=== PATIENT | male | born 1960 | race Caucasian/White ===

== ENCOUNTER 2022-07-29 08:48 | Emergency (ER) | payer OTHER, SELFPAY ==
--- NOTE | ~2022-07-29 | XR_ITS ---
EXAMINATION: XR CHEST CLINICAL INFORMATION: Chest pain. COMPARISON: 03/13/2014 chest radiographs. TECHNIQUE: 2 views of the chest were obtained. FINDINGS: No significant abnormality is noted involving the heart, lungs, mediastinum, bony thorax or soft tissues. XR/XR chest 2V IMPRESSION: No acute cardiopulmonary process.
--- NOTE | 2022-07-29 08:49 | ECG_ITS ---
Test Reason : chest pain Blood Pressure : / mmHG Vent. Rate : 051 BPM Atrial Rate : 051 BPM P-R Int : 170 ms QRS Dur : 086 ms QT Int : 456 ms P-R-T Axes : 075 -67 083 degrees QTc Int : 420 ms Sinus bradycardia Possible Left atrial enlargement St sagging in high lateral leads Left anterior fascicular block Minimal voltage criteria for LVH, may be normal variant ( Tiff product ) Inferior infarct , age undetermined Anterolateral infarct , age undetermined Abnormal ECG No previous ECGs available Referred By: Generic ED Physician Electronically Signed By:TERI GUILLERMO MD
[2022-07-29 08:53] VITALS: BP 144/81; PULSE 53; RESP 18; TEMP 36.6; O2SAT 96; BMI 29.2
[2022-07-29 09:20] LABS: MANUAL DIFF FLAG NO
[2022-07-29 09:22] LABS: Basophils Percent Auto 0.6 % (0-2); Eosinophils Absolute Auto 0.2 X10*3/uL (0.0-0.4); Eosinophils Percent Auto 3.2 % (0-4); Hematocrit 42.5 % (42.0-52.0); Hemoglobin 14.8 g/dl (14.0-18.0); Imm Gran Abs Auto 0.02 X10*3/uL (0.00-0.03); Imm Gran Pct Auto 0.3 % (0.0-0.4); Lymphocytes Absolute Auto 1.8 X10*3/uL (1.2-4.9); Lymphocytes Percent Auto 27.1 % (20-40); Mean Corpuscular HGB Conc 34.8 g/dl (31.0-36.0); Mean Corpuscular Hemoglobin 30.4 pg (27.0-33.0); Mean Corpuscular Volume 87.3 fL (80.0-98.0); Mean Platelet Volume 10.3 fL (9.4-12.4); Monocytes Absolute Auto 0.5 X10*3/uL (0.1-1.2); Monocytes Percent Auto 7.4 % (2-11); Neutrophils Absolute Auto 4.1 x10*3/uL (2.0-8.3); Neutrophils Percent Auto 61.4 % (45-73); Platelet Count 228 X10*3/uL (160-400); Red Blood Count 4.87 X10*6/uL (4.60-5.80); Red Cell Distribution Width 13.4 % (11.0-16.0); White Blood Count 6.6 X10*3/uL (4.8-10.8)
[2022-07-29 09:33] LABS: Anion Gap 12 (12-20); Blood Urea Nitrogen 10 mg/dL (9-16); Calcium 9.7 mg/dL (8.4-10.2); Carbon Dioxide 27 mmol/L (22-29); Chloride 107 mmol/L (96-108); Creatinine Clr Calc Pharmacy 75.1; Estimated Glomerular Filt Rate > 60; Glucose Random 106 mg/dL (60-115); Potassium 5.1 mmol/L (3.3-5.1); Sodium 141 mmol/L (135-145)
[2022-07-29 10:00] VITALS: BP 146/81; PULSE 49; RESP 11; TEMP 36.9; O2SAT 98
--- NOTE | 2022-07-29 10:05 | ED_ITS ---
HPI - Chest Pain General Chief Complaint: Chest Pain Stated Complaint: Chest pain Time Seen by Provider: 07/29/22 09:55 Source: patient Mode of arrival: ambulatory Limitations: no limitations History of Present Illness HPI narrative: Patient is a 62-year-old male who presents to the emergency department for evaluation of chest pain. He has no reported past medical history and does not take any medications. He reports approximately 2-3 weeks ago he tested positive for COVID-19. Soon thereafter he began developing chest pain that is described as substernal in nature and a burning sensation, at times is felt to the left anterior chest. Typically this pain lasts approximately 1-2 minutes and then resolves spontaneously. However, yesterday while he was snow blowing he developed severe pain with diaphoresis and nausea. He sat down for 15 minutes and then the pain resolved. He was able to go back and then complete snow blowing without any issue. Today while he was at work, which was approximately 2-3 hours prior to arrival he was clearing snow from a roof when he again developed severe pain to the chest which lasted approximately 15-20 minutes. This again self resolved. At this time he is currently without any chest pain. Denies headache, dizziness, vision changes, neck pain, jaw pain, shortness of breath, difficulty breathing, nausea, vomiting, abdominal pain, numbness or tingling of the extremities, generalized weakness. Denies any fevers or chills. Related Data Home Medications Medication Instructions Recorded Confirmed multivitamin 1 tab PO DAILY 07/29/22 07/29/22 zinc 50 mg tablet 50 mg PO DAILY 07/29/22 07/29/22 Allergies Allergy/AdvReac Type Severity Reaction Status Date / Time No Known Allergies Allergy Verified 07/29/22 08:53 Review of Systems Review of Systems: Yes all other systems are reviewed and are negative [facility] Past Medical History Attestation statement: The following information was validated with the patient. Source: old records reviewed Social History Social History Advance Directives: No Advance Directives Information Provided: No Physical Exam Vital Signs: Vital Signs: Last Vital Signs Temp 98.4 F 07/29/22 15:04 Pulse 56 07/29/22 15:04 Resp 14 07/29/22 15:04 BP 138/83 07/29/22 15:04 Pulse Ox 97 07/29/22 15:04 O2 Del Method 07/29/22 15:04 BMI result Body Mass Index 29.2 Appearance: Alert.?Oriented to person, place and time. No acute distress.?Normal affect. Eyes: Pupils equal, round and reactive to light.? ENT: Pharynx normal.?? Neck: Normal inspection.? Neck supple.?? CVS: Heart sounds normal. Normal heart rate and rhythm.? Pulses normal.?? Respiratory: No respiratory distress.? Lung sounds clear to auscultation bilaterally?? Abdomen: Soft and non-tender. Normoactive bowel sounds. ? Skin: Skin warm and dry.? Normal skin color.? Extremities: No lower extremity edema.? No calf ttp? Neuro: Moves all extremities spontaneously. Sensation intact bilaterally. CN II- XII intact. No focal neuro deficits. Ambulates with normal steady gait. Course Reevaluation(s) Reevaluation #1: Evaluated patient is labs, CBC is unremarkable, BMP overall unremarkable, potassium at high normal 5.1. Critical troponin of 116.1. EKG revealing sinus bradycardia with J-point elevation in the precordial leads, and LVH without any reciprocal changes, QTC of 420, no prior EKGs available for review. At this time will obtain repeat EKG, plan for repeat troponin at 12:00, in addition will obtain D-dimer. He remains asymptomatic at this time. Consulting with Cardiology on-call Dr. Osborne for any additional recommendations. Aspirin 324 mg p.o. orally ordered. Time: 10:40 Reevaluation #2: Repeat EKG was unchanged from initial. Spoke with Cardiology, concern for high- risk ACS at this time, patient to be initiated on heparin drip, bolus ordered, in addition to atorvastatin. Patient updated on plan of care and is agreeable. At this time continues to remain asymptomatic. Time: 11:12 Reevaluation #3: Repeat troponin 105.2. Chest x-ray without acute cardiopulmonary process. Pending cardiology evaluation Time: 12:14 Additional Reevaluation(s): 13:[address] Osborne, planning for transfer to [facility]. At this time patient received nitropaste 0.5 inch 16:40 - at this time no update on bed availability from [facility]. Patient remains stable, without any active chest pain. Heparin drip remains infusing. Patient and updated on plan of care. 1735 - patient accepted for transfer to [facility] accepting physician Dr. Hernandez, M7 Bed 17. Medications Administered Generic Name Dose Route Start Last Admin Trade Name Freq PRN Reason Stop Dose Admin Heparin Sodium/Sodium Chloride 25,000 unit in 250 mls @ 0 mls/hr 07/29/22 11:15 07/29/22 11:32 Heparin Sodium,Porcine/1/2ns IVCONT 12 units/kg/hr .Q0M JT 9.74 mls/hr Administration Protocol Per Protocol Discontinued Medications Generic Name Dose Route Start Last Admin Trade Name Freq PRN Reason Stop Dose Admin Aspirin 324 mg 07/29/22 10:54 07/29/22 11:09 Aspirin 81 Mg Tab.Chew PO 07/29/22 10:55 324 mg ONCE ONE Administration Atorvastatin Calcium 80 mg 07/29/22 11:07 07/29/22 11:11 Atorvastatin Calcium 80 Mg Tablet PO 07/29/22 11:08 80 mg ONCE ONE Administration Heparin Sodium (Porcine) 4,000 unit 07/29/22 11:04 07/29/22 11:31 Heparin Sodium,Porcine 5,000 Unit/Ml Vial IVPUSH 07/29/22 11:05 4,000 unit ONCE ONE Administration Nitroglycerin 0.5 inch 07/29/22 13:38 07/29/22 13:47 Nitroglycerin 2 % Oint 1 Gm Packet TRANSDERMA 07/29/22 13:39 0.5 inch ONCE ONE Administration Medical Decision Making Medical Decision Making [facility] Narrative: Patient is a 62-year-old male with no reported past medical history presenting to emergency department for evaluation of chest pain as noted in HPI. At the time of examination he is overall well-appearing, he is without any physical complaints, he is bradycardic and mildly hypertensive. He is without hypoxia or tachypnea. Afebrile. Will obtain CBC to evaluate for leukocytosis/ anemia, CMP and lipase to evaluate for abnormal electrolytes /abnormal renal function/ abnormal hepatic/biliary function, EKG and troponin to evaluate for ischemia/ACS. Chest x-ray to evaluate for consolidation/ infiltrate/ mass/ p ulmonary congestion. Differential Diagnosis Differential Diagnoses: The differential diagnosis associated with the presentation includes (ACS, pulmonary embolism, pericarditis, pneumonia) Lab Data [facility] Lab Attestation statement: I reviewed the patient's lab results. 07/29/22 09:10 07/29/22 09:10 Labs: Lab Results 07/29/22 07/29/22 07/29/22 Range/Units 09:10 09:10 09:10 WBC 6.6 (4.8-10.8) X10*3/uL RBC 4.87 (4.60-5.80) X10*6/uL Hgb 14.8 (14.0-18.0) g/dl Hct 42.5 (42.0-52.0) % MCV 87.3 (80.0-98.0) fL MCH 30.4 (27.0-33.0) pg MCHC 34.8 (31.0-36.0) g/dl RDW 13.4 (11.0-16.0) % Plt Count 228 (160-400) X10*3/uL MPV 10.3 (9.4-12.4) fL Immature Gran % (Auto) 0.3 (0.0-0.4) % Neut % (Auto) 61.4 (45-73) % Lymph % (Auto) 27.1 (20-40) % [place] % (Auto) 7.4 (2-11) % Eos % (Auto) 3.2 (0-4) % Baso % (Auto) 0.6 (0-2) % Lymph # (Auto) 1.8 (1.2-4.9) X10*3/uL [place] # (Auto) 0.5 (0.1-1.2) X10*3/uL Eos # (Auto) 0.2 (0.0-0.4) X10*3/uL Baso # (Auto) 0.0 (0.0-0.2) X10*3/uL Abs Immat Gran (auto) 0.02 (0.00-0.03) X10*3/uL Absolute Neuts (auto) 4.1 (2.0-8.3) x10*3/uL Absolute Nucleated RBC 0.000 (0.0-0.012) X10*3/uL Nucleated RBC % (auto) 0.0 (0.0-0.2) /100WBC PT (10.0-13.1) SEC INR (0.9-1.1) aPTT Heparin Protocol (53-77.9) SEC D-Dimer High Sensitivty NG/ML Sodium 141 (135-145) mmol/L Potassium 5.1 (3.3-5.1) mmol/L Chloride 107 (96-108) mmol/L Carbon Dioxide 27 (22-29) mmol/L Anion Gap 12 (12-20) BUN 10 (9-16) mg/dL Creatinine 1.06 (0.5-1.4) mg/dL Estim Creat Clear Calc 75.1 Estimated GFR > 60 Random Glucose 106 (60-115) mg/dL Calcium 9.7 (8.4-10.2) mg/dL Troponin I High Sens 116.1 H* (<3.5-35.0) ng/L COVID-19 (CARIN) (Negative) COVID-19 Clin Com 07/29/22 07/29/22 07/29/22 Range/Units 10:47 11:23 11:23 WBC 10.9 H (4.8-10.8) X10*3/uL RBC 5.06 (4.60-5.80) X10*6/uL Hgb 15.2 (14.0-18.0) g/dl Hct 42.8 (42.0-52.0) % MCV 84.6 (80.0-98.0) fL MCH 30.0 (27.0-33.0) pg MCHC 35.5 (31.0-36.0) g/dl RDW 13.2 (11.0-16.0) % Plt Count 218 (160-400) X10*3/uL MPV 10.1 (9.4-12.4) fL Immature Gran % (Auto) (0.0-0.4) % Neut % (Auto) (45-73) % Lymph % (Auto) (20-40) % [place] % (Auto) (2-11) % Eos % (Auto) (0-4) % Baso % (Auto) (0-2) % Lymph # (Auto) (1.2-4.9) X10*3/uL [place] # (Auto) (0.1-1.2) X10*3/uL Eos # (Auto) (0.0-0.4) X10*3/uL Baso # (Auto) (0.0-0.2) X10*3/uL Abs Immat Gran (auto) (0.00-0.03) X10*3/uL Absolute Neuts (auto) (2.0-8.3) x10*3/uL Absolute Nucleated RBC 0.000 (0.0-0.012) X10*3/uL Nucleated RBC % (auto) 0.0 (0.0-0.2) /100WBC PT 9.8 L (10.0-13.1) SEC INR 0.9 (0.9-1.1) aPTT Heparin Protocol 38.4 L (53-77.9) SEC D-Dimer High Sensitivty < 150 NG/ML Sodium (135-145) mmol/L Potassium (3.3-5.1) mmol/L Chloride (96-108) mmol/L Carbon Dioxide (22-29) mmol/L Anion Gap (12-20) BUN (9-16) mg/dL Creatinine (0.5-1.4) mg/dL Estim Creat Clear Calc Estimated GFR Random Glucose (60-115) mg/dL Calcium (8.4-10.2) mg/dL Troponin I High Sens 105.2 H* (<3.5-35.0) ng/L COVID-19 (CARIN) (Negative) COVID-19 Clin Com 07/29/22 Range/Units 13:48 WBC (4.8-10.8) X10*3/uL RBC (4.60-5.80) X10*6/uL Hgb (14.0-18.0) g/dl Hct (42.0-52.0) % MCV (80.0-98.0) fL MCH (27.0-33.0) pg MCHC (31.0-36.0) g/dl RDW (11.0-16.0) % Plt Count (160-400) X10*3/uL MPV (9.4-12.4) fL Immature Gran % (Auto) (0.0-0.4) % Neut % (Auto) (45-73) % Lymph % (Auto) (20-40) % [place] % (Auto) (2-11) % Eos % (Auto) (0-4) % Baso % (Auto) (0-2) % Lymph # (Auto) (1.2-4.9) X10*3/uL [place] # (Auto) (0.1-1.2) X10*3/uL Eos # (Auto) (0.0-0.4) X10*3/uL Baso # (Auto) (0.0-0.2) X10*3/uL Abs Immat Gran (auto) (0.00-0.03) X10*3/uL Absolute Neuts (auto) (2.0-8.3) x10*3/uL Absolute Nucleated RBC (0.0-0.012) X10*3/uL Nucleated RBC % (auto) (0.0-0.2) /100WBC PT (10.0-13.1) SEC INR (0.9-1.1) aPTT Heparin Protocol (53-77.9) SEC D-Dimer High Sensitivty NG/ML Sodium (135-145) mmol/L Potassium (3.3-5.1) mmol/L Chloride (96-108) mmol/L Carbon Dioxide (22-29) mmol/L Anion Gap (12-20) BUN (9-16) mg/dL Creatinine (0.5-1.4) mg/dL Estim Creat Clear Calc Estimated GFR Random Glucose (60-115) mg/dL Calcium (8.4-10.2) mg/dL Troponin I High Sens (<3.5-35.0) ng/L COVID-19 (CARIN) Negative (Negative) COVID-19 Clin Com See Note Independent Interpretation I performed an independent interpretation of an: EKG (As noted in course) and Plain X-Ray (I personally interpreted chest x-ray and agree with radiologist impression) Radiology Impression Discussion of test interpretation with radiology: I have reviewed the radiologist's reading. Critical Care Time Critical Care Time Critical Care Time: Yes Total Critical Care Time: 60 Attestation: I personally attest to this critical care time spent taking care of the patient exclusive of all other billable procedures was approximately 60 minutes including initial evaluation of patient, ordering tests, x-ray interpretation, EKG interpretation, medical consultation, documentation, re-evaluation. Discharge Plan Discharge Clinical Impression: Acute coronary syndrome Patient Disposition: Xfer Acute Care Hospital Transfer Details: [facility] Prescriptions: No Action multivitamin Tablet 1 tab PO DAILY Zinc Chelated 50 mg Tablet 50 mg PO DAILY
[2022-07-29 10:10] LABS: Troponin-I High Sensitivity 116.1 ng/L (<3.5-35.0)
--- NOTE | 2022-07-29 10:39 | ECG_ITS ---
Test Reason : CHEST PAIN Blood Pressure : / mmHG Vent. Rate : 051 BPM Atrial Rate : 051 BPM P-R Int : 176 ms QRS Dur : 084 ms QT Int : 478 ms P-R-T Axes : 066 -68 086 degrees QTc Int : 440 ms Sinus bradycardia Possible Left atrial enlargement Left anterior fascicular block Minimal voltage criteria for LVH, may be normal variant ( Jeremy product ) Inferior infarct (cited on or before 29-JUL-2022) Possible Anterolateral infarct (cited on or before 29-JUL-2022) ST sagging in high lateral leads Abnormal ECG When compared with ECG of 29-JUL-2022 08:59, No significant change was found Referred By: Tanja Bennett Electronically Signed By:TERI GUILLERMO MD
[2022-07-29 11:02] LABS: INTERNATIONAL NORM RATIO 0.9 (0.9-1.1); Prothrombin Time 9.8 SEC (10.0-13.1)
[2022-07-29 11:06] LABS: D Dimer High Sensitivity < 150 NG/ML
[2022-07-29] MEDS: Aspirin 81 MG TAB.CHEW 324 MG PO (11:09)
[2022-07-29] MEDS: Atorvastatin Calcium 80 MG TABLET PO (11:11)
[2022-07-29 11:24] LABS: PTT Heparin Drip 38.4 SEC (53-77.9)
[2022-07-29] MEDS: Heparin Sodium,Porcine 5,000 UNIT/ML VIAL 4000 UNIT IVPUSH (11:31)
[2022-07-29] MEDS: Heparin Sodium,Porcine/1/2NS 25,000 UNIT/250 ML IV.SOLN 9.74 UNIT IVCONT (11:32)
[2022-07-29 11:33] LABS: Hematocrit 42.8 % (42.0-52.0); Hemoglobin 15.2 g/dl (14.0-18.0); Mean Corpuscular HGB Conc 35.5 g/dl (31.0-36.0); Mean Corpuscular Volume 84.6 fL (80.0-98.0); Mean Platelet Volume 10.1 fL (9.4-12.4); Platelet Count 218 X10*3/uL (160-400); Red Blood Count 5.06 X10*6/uL (4.60-5.80); Red Cell Distribution Width 13.2 % (11.0-16.0); White Blood Count 10.9 X10*3/uL (4.8-10.8)
[2022-07-29 12:00] LABS: Troponin-I High Sensitivity 105.2 ng/L (<3.5-35.0)
[2022-07-29] MEDS: Nitroglycerin 2 % Oint 1 GM Packet 0.5 INCH TRANSDERMA (13:47)
[2022-07-29 14:11] LABS: IDNOW Serial# 55D5AD1C
[2022-07-29 14:12] LABS: COVID-19 Test Negative (Negative)
--- NOTE | 2022-07-29 14:44 | P.CONCA_ITS ---
History of Present Illness History of Present Illness Date of Service: 07/29/22 Requesting physician: Tanja Bennett Chief complaint: Chest pain Narrative: I was consulted to see coronal in cardiology consultation today for ongoing chest discomfort. He is a 62-year-old male with no significant past medical history, history of smoking many years ago but no chronic medical issues and no significant cardiovascular risk factors. He for about a month he has been having intermittent retrosternal burning chest discomfort which happens when he was doing exertional activities and he would stop doing activity in the symptoms with subside within 1-2 minutes. Said about a month ago his was diagnosed with COVID with any thought he also had COVID and was tested positive for COVID although did not get hospitalized. Since then he started having this discomfort and felt that this was all related to congestion related to COVID. 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 He then stop during his activity and waited for 15 minute still symptoms completely subsided. He then finishes work at the lesser pace. Again this morning he developed significant chest discomfort at work and then decided that the something was wrong and he decided to come to the emergency room. By time he came to the emergency room with chest discomfort at subsided. EKG shows sinus bradycardia with left anterior fascicular block with Q-waves in lead 3 and AVF as well as downsloping ST T wave in high lateral l sabas. Troponins are flat in the 100 range. Review of Systems Constitutional: Constitutional: Reports no additional constitutional complaints Eyes: Eyes: Reports no additional eye complaints Cardiovascular: Cardiovascular: Reports chest pain with activity, Denies leg edema, Denies lightheadedness, Denies Loss of Consciousness, Reports dyspnea and Reports other (Nausea and diaphoresis with chest pain) Respiratory: Respiratory: Reports no additional respiratory complaints and Reports dyspnea Gastrointestinal: Gastrointestinal: Reports no additional gastrointestinal complaints Genitourinary: Genitourinary: Reports no additional male genitourinary complaints Musculoskeletal: Musculoskeletal: Reports no additional musculoskeletal complaints Integumentary/Breasts: Skin/Breast: Reports system reviewed and no additional complaints, except as docu Neurologic: Reports system reviewed and no additional complaints, except as documented Psychiatric: Psychiatric: Reports no additional psychiatric complaints Hematologic/Lymphatic: Hematologic/Lymphatic: Reports no additional hem atologic/lymphatic complaints PMFSH Social History Social History Advance Directives: No Advance Directives Information Provided: No Meds Allergies Allergy/AdvReac Type Severity Reaction Status Date / Time No Known Allergies Allergy Verified 07/29/22 08:53 Active Medications: Current Medications Heparin Sodium (Porcine) (Heparin Sodium,Porcine 5,000 Unit/Ml Vial) 3,200 unit 40 unit/kg (3200 unit) IVPUSH PROTOCOL BOLUS PRN; Protocol PRN Reason: 40 unit/kg - Heparin Protocol Heparin Sodium (Porcine) (Heparin Sodium,Porcine 5,000 Unit/Ml Vial) 6,500 unit 80 unit/kg (6500 unit) IVPUSH PROTOCOL BOLUS PRN; Protocol PRN Reason: 80 unit/kg - Heparin Protocol Heparin Sodium/Sodium Chloride (Heparin Sodium,Porcine/1/2ns) 25,000 unit in 2 50 mls @ 0 mls/hr IVCONT .Q0M JT; Protocol Last Admin: 07/29/22 11:32 Dose: 12 units/kg/hr, 9.74 mls/hr Pharmacy Consult (Consult Rx Perform Med Rec) 1 each MISCELLANE ONCE PRN PRN Reason: Consult order Home Medications Medication Instructions Recorded Confirmed Last Taken Type multivitamin 1 tab PO DAILY 07/29/22 07/29/22 Unknown History zinc 50 mg tablet 50 mg PO DAILY 07/29/22 07/29/22 Unknown History Physical Exam Vital Signs: Vital Signs: Last Vital Signs Temp 98.5 F 07/29/22 10:00 Pulse 49 L 07/29/22 10:00 Resp 11 L 07/29/22 10:00 BP 146/81 H 07/29/22 10:00 Pulse Ox 98 07/29/22 10:00 O2 Del Method 07/29/22 10:00 BMI result Body Mass Index 29.2 Const: General: cooperative, comfortable, no acute distress, well developed, alert, awake and Physically active Nutritional Appearance: average body habitus and well nourished Orientation/consciousness: patient oriented x3 Limitations: no limitations HEENT: Head: Yes normocephalic and Yes atraumatic Neck: Neck: Yes trachea midline, Yes supple and Yes no JVD Resp: Effort & Inspection: normal respiratory effort Auscultation: clear to auscultation bilaterally Cardio: Jugular venous distension: no JVD Palpation: normal PMI Rate: regular rate Rhythm: regular rhythm Heart sounds: S1 normal heart sound present, S2 normal heart sound present, no click, no gallops, no murmurs and no rubs GI: Auscultation: normal bowel sounds Skin: General skin exam: no rashes or lesions noted Neuro: General: patient oriented x3 and no focal motor deficits Extrem: General: Yes no clubbing, cyanosis or edema Objective Labs and Meds 07/29/22 11:23 07/29/22 09:10 Lab results: Laboratory Results - last 24 hr 07/29/22 07/29/22 07/29/22 09:10 09:10 09:10 WBC 6.6 RBC 4.87 Hgb 14.8 Hct 42.5 MCV 87.3 MCH 30.4 MCHC 34.8 RDW 13.4 Plt Count 228 MPV 10.3 Immature Gran % (Auto) 0.3 Neut % (Auto) 61.4 Lymph % (Auto) 27.1 [place] % (Auto) 7.4 Eos % (Auto) 3.2 Baso % (Auto) 0.6 Lymph # (Auto) 1.8 [place] # (Auto) 0.5 Eos # (Auto) 0.2 Baso # (Auto) 0.0 Abs Immat Gran (auto) 0.02 Absolute Neuts (auto) 4.1 Absolute Nucleated RBC 0.000 Nucleated RBC % (auto) 0.0 PT INR aPTT Heparin Protocol D-Dimer High Sensitivty Sodium 141 Potassium 5.1 Chloride 107 Carbon Dioxide 27 Anion Gap 12 BUN 10 Creatinine 1.06 Estim Creat Clear Calc 75.1 Estimated GFR > 60 Random Glucose 106 Calcium 9.7 Troponin I High Sens 116.1 H* COVID-19 (CARIN) COVID-19 Clin Com 07/29/22 07/29/22 07/29/22 10:47 11:23 11:23 WBC 10.9 H RBC 5.06 Hgb 15.2 Hct 42.8 MCV 84.6 MCH 30.0 MCHC 35.5 RDW 13.2 Plt Count 218 MPV 10.1 Immature Gran % (Auto) Neut % (Auto) Lymph % (Auto) [place] % (Auto) Eos % (Auto) Baso % (Auto) Lymph # (Auto) [place] # (Auto) Eos # (Auto) Baso # (Auto) Abs Immat Gran (auto) Absolute Neuts (auto) Absolute Nucleated RBC 0.000 Nucleated RBC % (auto) 0.0 PT 9.8 L INR 0.9 aPTT Heparin Protocol 38.4 L D-Dimer High Sensitivty < 150 Sodium Potassium Chloride Carbon Dioxide Anion Gap BUN Creatinine Estim Creat Clear Calc Estimated GFR Random Glucose Calcium Troponin I High Sens 105.2 H* COVID-19 (CARIN) COVID-19 Clin Com 07/29/22 13:48 WBC RBC Hgb Hct MCV MCH MCHC RDW Plt Count MPV Immature Gran % (Auto) Neut % (Auto) Lymph % (Auto) [place] % (Auto) Eos % (Auto) Baso % (Auto) Lymph # (Auto) [place] # (Auto) Eos # (Auto) Baso # (Auto) Abs Immat Gran (auto) Absolute Neuts (auto) Absolute Nucleated RBC Nucleated RBC % (auto) PT INR aPTT Heparin Protocol D-Dimer High Sensitivty Sodium Potassium Chloride Carbon Dioxide Anion Gap BUN Creatinine Estim Creat Clear Calc Estimated GFR Random Glucose Calcium Troponin I High Sens COVID-19 (CARIN) Negative COVID-19 Clin Com See Note EKG shows normal sinus rhythm with left axis deviation with suggestion of Q- waves in lead [address] sagging in high lateral leads Imaging Radiologist's impression: Impressions Chest X-Ray 07/29/22 11:18 IMPRESSION: No acute cardiopulmonary process. Assessment and Plan (1) Acute coronary syndrome: Status: Acute Patient crescendo symptoms of chest discomfort suggestive of angina and myocardial ischemia related to coronary artery disease. Symptoms are worse yesterday. Troponins are flat but mildly elevated with minor EKG changes. Less likely that this could represent myocarditis. I agree that this needs to be treated as primary acute coronary syndrome and has been started on IV heparin therapy. Continue aspirin. Given his slow heart rate would avoid metoprolol therapy but at nitrates to control his blood pressure. High-intensity statin therapy with atorvastatin 40-80 mg should be given. Discussed with him or need for cardiac catheterization. He is agreeable. Have made arrangements for him to be transferred to [facility] for cardiac catheterization. The need for cardiac catheterization including benefits, risks, alternatives 2nd open with discussed with him. He understands agrees. Will sign of the case at this point time. Thank you for allowing me to partake in his care his care Time Spent With Patient Time: Total time managing care of this patient today ____ minutes. Procedures Date of Service Date of Service: 07/29/22
--- NOTE | 2022-07-29 14:45 | PHA.MEDREC ---
Pharmacy Consult ? Medication Reconciliation Pharmacy has completed the medication reconciliation. Patient reported all medications. Only takes OTC medications. Amita Goetz, VanceD
[2022-07-29 15:04] VITALS: BP 138/83; PULSE 56; RESP 14; TEMP 36.9; O2SAT 97
[2022-07-29 18:06] VITALS: BP 135/83; PULSE 76; RESP 19; TEMP 36.6; O2SAT 95
== END 2022-07-29 18:43 | disposition short-term general hospital (02) ==
PROVIDERS: Nurse Practitioner Family; Emergency Provider Emergency Medicine
DX: I24.9 Acute ischemic heart disease, unspecified (principal); R07.9 Chest pain, unspecified; Z20.822 Contact with and (suspected) exposure to COVID-19
CPT/HCPCS: 36415; 71046; 80048; 84484; 85025; 85027; 85379; 85610; 85730; 87635; 93005; 96365; 96366; 96375; 99285; J1643

== ENCOUNTER → 2022-08-24 13:50 | Outpatient (BNVA) | payer OTHER, SELFPAY | PROVIDERS: Visit Provider Internal Medicine Cardiovascular Disease | DX: Z13.89 Encounter for screening for other disorder (principal) ==